=== PATIENT | male | born 1945 | race Caucasian/White ===

== ENCOUNTER 2021-12-03 08:55 | Day surgery (SDC) | payer MEDICARE ==
[2021-11-29 14:55] VITALS: BMI 26.9
[~2021-12-03 08:55] MED LIST: LACTATED RINGERS 1,000 ML IV SCH; LIDOCAINE 1% (10MG/ML) FOR IV START INTRADERMA PRN
[2021-12-03 09:33] VITALS: TEMP 97.7
[2021-12-03] MEDS ORDERED: PROPOFOL 10 MG/ML 20 ML VIAL IV ONE (10:01)
--- NOTE | 2021-12-03 10:18 | P.PCN ---
Date of Procedure: 12/03/21 Procedure(s) Performed: BRIEF HISTORY: Patient is a 76-year-old pleasant white male scheduled for an elective colonoscopy as a part of screening for colorectal neoplasia. PROCEDURE PERFORMED: Colonoscopy snare polypectomy. PREOPERATIVE DIAGNOSIS: Screening for colon cancer. IV sedation per Anesthesia. PROCEDURE: After informed consent was obtained, the patient, was brought into the endoscopy unit. IV sedation was administered by Anesthesia under continuous monitoring. Digital rectal examination was normal. Initially the Olympus CF-160 flexible video colonoscope was then inserted in the rectum, gradually advanced into the cecum without any difficulty. Careful examination was performed as the scope was gradually being withdrawn. Ileocecal valve and the appendiceal orifice were visualized and appeared normal. Prep was excellent. Mucosa of the cecum, appeared normal. In the ascending colon there was a 5 mm polyp that was removed by snare polypectomy. Rest of the ascending colon, transverse colon, descending colon, sigmoid colon, and rectum appeared normal. Retroflexion was performed in the rectum and no lesions were seen. The patient tolerated the procedure well. IMPRESSION: 5 mm ascending colon polyp status post polypectomy and scattered sigmoid diverticulosis RECOMMENDATIONS: Findings of this examination were discussed with the patient as well as a family. She was advised to follow with the biopsy results. ALLERGIES adenoma he can have a repeat colonoscopy in 5 years.
[2021-12-03 10:58] VITALS: BP 162/78; PULSE 73; RESP 16
== END 2021-12-03 11:28 | disposition home or self-care (01) ==
LOC: ORWHC2ENDO 08:55
PROVIDERS: ATTEND Internal Medicine Gastroenterology
DX: Z12.11 Encounter for screening for malignant neoplasm of colon (principal); D12.2 Benign neoplasm of ascending colon; K57.30 Diverticulosis of large intestine without perforation or abscess without bleeding; Z79.82 Long term (current) use of aspirin; Z79.899 Other long term (current) drug therapy; I10 Essential (primary) hypertension; E78.5 Hyperlipidemia, unspecified; Z97.2 Presence of dental prosthetic device (complete) (partial); Z88.8 Allergy status to other drugs, medicaments and biological substances
CPT/HCPCS: 88305; 45385; J2704

== ENCOUNTER → 2023-01-09 | Outpatient (CLI) | payer MEDICARE ==
--- NOTE | 2023-01-10 07:54 | CT ---
EXAMINATION TYPE: CT brain wo con CT DLP: 1144.7 mGycm, Automated exposure control for dose reduction was used. DATE OF EXAM: 01/09/2023 4:30 PM COMPARISON: None. CLINICAL INDICATION:Male, 77 years old with history of R53.1 Weakness, left arm tingling x 1week TECHNIQUE: Brain: Multiple axial CT images of the brain were obtained without IV contrast. Coronal and sagittal reformats reviewed. FINDINGS: Brain: Extra-axial spaces: No abnormal extra-axial fluid collections. Ventricular system: Dilatation in proportion to cerebral atrophy. Cerebral parenchyma: Cerebral atrophy. No acute intraparenchymal hemorrhage or mass effect. The franco -white junction is well differentiated. Scattered hypoattenuating areas are seen within the white mat ter. Cerebellum: Unremarkable. Mass effect: No evidence of midline shift. Intracranial vasculature: Atherosclerotic calcifications of the intracranial vessels. Soft tissues: Normal. Calvarium/osseous structures: No depressed skull fracture. Paranasal sinuses and mastoid air cells: Minimal scattered paranasal sinus disease. Visualized orbits: Bilateral aphakia IMPRESSION: 1. No acute intracranial process. 2. Nonspecific white matter changes, likely secondary to chronic small vessel ischemic disease.
== END | disposition home or self-care (01) ==
LOC: RADCTMAIN 16:03
PROVIDERS: ATTEND Family Medicine
DX: R90.82 White matter disease, unspecified (principal); R20.0 Anesthesia of skin; M62.81 Muscle weakness (generalized)
CPT/HCPCS: 70450

== ENCOUNTER → 2024-01-20 | Outpatient (CLI) | payer MEDICARE ==
--- NOTE | 2024-02-11 08:10 | MR ---
Site ID synapse default Patient Jorge Hoang ID [id number] Age/Gender: 78Y, M Order # N/A Procedure MR cervical spine w/o con Date 01/20/2024 4:18:18 PM EXAMINATION TYPE: MR cervical spine wo con DATE OF EXAM: 02/04/2024 COMPARISON: None HISTORY: Hand numbness/tingling, weakness TECHNIQUE: Multiplanar, multisequence images of the cervical spine were acquired without contrast. Delay in inte rpretation due to institutional cyber attack. FINDINGS: Alignment: The cervical vertebral bodies have preserved heights. Grade 1 anterolisthesis of C4 on C5. Bones: Bone signal is within normal limits. Multilevel degenerative disc disease is noted. Cord: There is increased T2 cord signal identified at C3-C4. Remaining spinal cord demonstrates rafa l signal. Discs: Multilevel disc desiccation is present. C2-C3: Broad-based disc bulge resulting in mild effacement of the anterior thecal sac. Bilateral face t arthropathy with right mild neural foraminal stenosis. The left neural foramen is patent. C3-C4: Central disc protrusion with caudal extrusion of approximately 5 mm resulting in severe centra l canal stenosis. Bilateral facet arthropathy and uncovertebral joint hypertrophy resulting in mild l eft and jwtjpofv-jv-cawkxg right neural foramina stenosis. C4-C5: Grade 1 anterolisthesis. Central disc protrusion with mild to moderate effacement of the anter ior thecal sac. Bilateral facet arthropathy with mild right neural foraminal stenosis. Left neural fo ramen is patent. C5-C6: Broad-based disc bulge with mild effacement of the anterior thecal sac. Bilateral facet arthr opathy with mild right and moderate left neural foraminal stenosis. C6-C7: Broad-based disc bulge with mild effacement of the anterior thecal sac. Bilateral facet arthr opathy with uncovertebral joint hypertrophy results in moderate left and moderate to severe right frida ral foraminal stenosis. C7-T1: Eccentric left disc bulge with mild effacement of the anterior thecal sac. Bilateral facet art hropathy resulting in severe right and ssnl-oz-zqdreaxr left neural foraminal stenosis. Other: None. IMPRESSION: 1. Advanced multilevel degenerative disc disease and facet arthropathy. This is most pronounced at C 3-C4 with large disc herniation resulting in severe central canal stenosis and spinal cord myelopathy . Surgical consultation is recommended. 2. C4-C5 disc herniation with mild to moderate central canal stenosis. Multilevel disc bulges result ing in mild central canal stenosis. 3. Grade 1 anterolisthesis of C4 on C5. 4. Multilevel varying degrees of neural foraminal stenosis as described above.
== END | disposition home or self-care (01) ==
LOC: RADMRIMAIN 17:00
PROVIDERS: ATTEND Physical Medicine & Rehabilitation
DX: M48.02 Spinal stenosis, cervical region (principal); M79.642 Pain in left hand; M79.641 Pain in right hand; M47.812 Spondylosis without myelopathy or radiculopathy, cervical region; M50.021 Cervical disc disorder at C4-C5 level with myelopathy; M43.12 Spondylolisthesis, cervical region
CPT/HCPCS: 72141

== ENCOUNTER → 2024-02-16 | Outpatient (CLI) | payer MEDICARE ==
--- NOTE | 2024-02-16 14:26 | XR ---
EXAMINATION TYPE: XR chest 2V DATE OF EXAM: 02/16/2024 2:22 PM CLINICAL INDICATION: Male, 78 years old with history of Z01.818 PAT, Z22.322 MRSA --CHEST XR; [facility] COMPARISON: None TECHNIQUE: XR chest 2V Frontal view of the chest. FINDINGS: Lungs/Pleura: There is no evidence of pleural effusion, focal consolidation, or pneumothorax. Pulmonary vascularity: Unremarkable. Heart/mediastinum: Cardiomediastinal silhouette is unremarkable. Musculoskeletal: No acute osseous pathology. IMPRESSION: No acute cardiopulmonary disease/process.
[2024-02-16 14:39] LABS: INR 1.2 (<1.2); Partial Thromboplastin Time 29.4 sec (22.0-30.0); Prothrombin Time 12.6 sec (10.0-12.5)
[2024-02-16 18:57] LABS: Basophils # (A) 0.07 X 10*3/uL (0.00-0.10); Basophils % (A) 0.6 %; Eosinophils # (A) 0.53 X 10*3/uL (0.04-0.35); Eosinophils % (A) 4.3 %; HCT 51.1 % (39.6-50.0); HGB 16.3 g/dL (13.0-17.0); Lymphocytes # (A) 2.75 X 10*3/uL (0.90-5.00); Lymphocytes % (A) 22.3 %; MCH 28.4 pg (27.0-32.0); MCHC 31.9 g/dL (32.0-37.0); Monocytes # (A) 0.62 X 10*3/uL (0.20-1.00); NRBC Per 100 WBC 0 X 10*3/uL (0.00-0.01); Neutrophils # (A) 8.28 X 10*3/uL (1.80-7.70); Neutrophils % (A) 67.2 %; Platelet Count 348 X 10*3/uL (140-440); RBC 5.74 X 10*6/uL (4.40-5.60); RDW 14.1 % (11.5-14.5); WBC 12.32 X 10*3/uL (4.50-10.00)
[2024-02-16 20:42] LABS: Appearance,Urine Clear (Clear); Bilirubin,Urine Negative (Negative); Blood,Urine Negative (Negative); Color,Urine Yellow (Yellow); Ketones,Urine Trace (Negative); Nitrite,Urine Negative (Negative); Specific Gravity,Urine 1.022 (1.001-1.030)
[2024-02-16 20:46] LABS: BUN/Creat Ratio 17.33 Ratio (12.00-20.00); Blood Urea Nitrogen 20.8 mg/dL (9.0-27.0); Calcium 10.5 mg/dL (8.7-10.3); Carbon Dioxide 27.7 mmol/L (21.6-31.8); Chloride 103 mmol/L (96-109); Glucose 106 mg/dL (70-110); Potassium 4.9 mmol/L (3.5-5.5); Sodium 141 mmol/L (135-145)
== END | disposition home or self-care (01) ==
LOC: LABPAT 13:28
PROVIDERS: ATTEND Orthopaedic Surgery Orthopaedic Surgery of the Spine
DX: Z01.818 Encounter for other preprocedural examination (principal); Z22.322 Carrier or suspected carrier of Methicillin resistant Staphylococcus aureus; M48.02 Spinal stenosis, cervical region
CPT/HCPCS: 36415; 71046; 80048; 81003; 85025; 85610; 85730; 86850; 86900; 86901; 87070

== ENCOUNTER 2024-02-24 05:37 | Inpatient (IN) | payer MEDICARE ==
[2024-02-24] MEDS ORDERED: LIDOCAINE 1% (10MG/ML) FOR IV START INTRADERMA PRN (06:06)
[2024-02-24] MEDS: IV FLUID CONTINUATION 1,000 ML IV ONE ×2 (06:15)
[2024-02-24] MEDS: ONDANSETRON 4 MG/2 ML VIAL IVP ONE (06:46)
[2024-02-24] MEDS: LACTATED RINGERS 1,000 ML IV SCH (06:47)
[2024-02-24] MEDS ORDERED: MIDAZOLAM 2 MG/2 ML VIAL IV PRN (07:00)
[2024-02-24] MEDS ORDERED: fentaNYL (PF) 50 MCG/ML 2 ML AMP IVP PRN (07:00)
[2024-02-24] MEDS ORDERED: HYDROmorphone 0.5 MG/0.5 ML SYRINGE IVP PRN (07:00)
[2024-02-24] MEDS ORDERED: PHENYLEPHRINE-0.9% NACL SYG 1,000 MCG/10 ML SYRINGE ONE (07:25)
[2024-02-24] MEDS ORDERED: KETAMINE HCL IN 0.9 % NACL 50 MG/5 ML SYRINGE ONE (07:25)
[2024-02-24] MEDS ORDERED: MIDAZOLAM 2 MG/2 ML VIAL ONE (07:25)
[2024-02-24] MEDS ORDERED: GLYCOPYRROLATE 0.2 MG/ML 2 ML VIAL ONE (07:25)
[2024-02-24] MEDS ORDERED: NEOSTIGMINE 1 MG/ML 10 ML VIAL ONE (07:25)
[2024-02-24] MEDS ORDERED: PROPOFOL 10 MG/ML 20 ML VIAL IV ONE (07:25)
[2024-02-24] MEDS ORDERED: ROCURONIUM 10 MG/ML (5 ML VIAL) IV ONE (07:25)
[2024-02-24] MEDS ORDERED: fentaNYL (PF) 50 MCG/ML 2 ML AMP ONE (07:25)
[2024-02-24] MEDS ORDERED: LIDOCAINE 1% INJ 10MG/ML (20 ML MDV) ONE (07:25)
[2024-02-24] MEDS ORDERED: ePHEDrine 50 MG/ML 1 ML VIAL ONE (07:25)
[2024-02-24] MEDS ORDERED: SUCCINYLCHOLINE CHLORIDE 200 MG/10 ML VIAL IV ONE (07:25)
[2024-02-24] MEDS: LIDOCAINE 1%-EPI 1:100,000 20 ML VIAL SQ ONE (07:30)
[2024-02-24] MEDS: THROMBIN (BOVINE) 5,000 UNIT VIAL TOPICAL ONE (07:30)
[2024-02-24] MEDS: ceFAZolin 1,000 MG in SODIUM CHLORIDE 0.9% IRRIGATIO 1,000 ML IRRIGATION PRN (08:28)
--- NOTE | 2024-02-24 08:39 | XR ---
EXAMINATION TYPE: XR cervical spine 1V DATE OF EXAM: 02/24/2024 COMPARISON: NONE HISTORY: NEEDLE PLACEMENT TECHNIQUE: Crosstable lateral view of the cervical spine FINDINGS: Localization of hiatus is at the anterior C4-5 level. IMPRESSION: As above
--- NOTE | 2024-02-24 10:29 | XR ---
EXAMINATION TYPE: XR cervical spine 1V DATE OF EXAM: 02/24/2024 COMPARISON: NONE HISTORY: Hardware placement TECHNIQUE: Cross table lateral intraoperative portable view of the cervical spine FINDINGS: Anterior cervical discectomy and fusion extending from C3 through C7. Anterior fixation roly te and intervertebral body spacers are in place. Postoperative alignment appears to be within normal limits. IMPRESSION: As above
--- NOTE | 2024-02-24 10:41 | P.OP ---
Date of Procedure: 02/24/24 Preoperative Diagnosis: Cervical myelopathy, cervical myelomalacia, severe cervical stenosis C3-4 C4-5 C5-6 C6-7, herniated nucleus pulposus C3-4 C4-5 C5-6 C6-7, upper extremity weakness, upper extremity radiculopathy, myelopathic hand Postoperative Diagnosis: Same Anesthesia: GETA Pathology: none sent Condition: stable Disposition: PACU Description of Procedure: BRIEF OPERATIVE NOTE Preoperative Diagnosis:Cervical myelopathy, cervical myelomalacia, severe cervical stenosis C3-4 C4-5 C5-6 C6-7, herniated nucleus pulposus C3-4 C4-5 C5-6 C6-7, upper extremity weakness, upper extremity radiculopathy, myelopathic hand Postoperative Diagnosis:Cervical myelopathy, cervical myelomalacia, severe cervical stenosis C3-4 C4-5 C5-6 C6-7, herniated nucleus pulposus C3-4 C4-5 C5-6 C6-7, upper extremity weakness, upper extremity radiculopathy, myelopathic hand Procedure: Anterior cervical decompression with discectomy and fusion C3-4 C4-5 C5-6 C6-7 Placement of interbody graft C3-4 C4-5 C5-6 C6-7 Application of anterior cervical plate C3-7 Surgeon: Dr. Rogel Security Manager: Miko SILVESTRE who is present throughout the entire the case persistence during positioning, dissection, exposure, visualization, and all crucial elements of the case as well as closure. Anesthesia: General anesthesia per Dr. Yi Estimated blood loss: Approximately 100 cc Complications: None apparent Components implanted: K2M [place] anterior cervical plate system with screws and Vikos interbody allograft bone graft x 4 and 1 cc of DBX bone putty Disposition: To recovery room in good stable condition. OPERATIVE INDICATIONS The patient has had long-standing issues in their neck and upper extremities. He has been having significant worsening over the past several months. He has been treated in the past for carpal tunnel syndrome but was continuing to have upper extremity symptoms. He presented to us in was found to have evidence of significant cervical myelopathy and myelopathic hand. He was found to have severe stenosis at his cervical spine at multiple levels with disc herniation which correlated well with his neck and upper extremity symptoms. He was having myelopathy and difficulty with his ambulation in his bilateral upper extremities worse on the right than the left. The patient understood that his issues were quite severe and he would likely have permanent nerve damage due to the significant symptoms and issues at his cervical spine. The patient has been through conservative treatment. We discussed various treatment options including surgery, and the patient wishes to proceed with surgery We discussed the risk, patient's alternatives and benefits of surgery including but not limited to, risk of bleeding risk of infection, risk of need for further surgery, risk of decreased, loss of motion, muscle function, malunion nonunion, hardware failure, nerve damage, paralysis, heart attack, and . OPERATIVE SUMMARY After discussing all the risks, patient alternatives and benefits at length, the patient elected to proceed with surgical intervention, signed informed consent, and presented for their procedure. The patient was seen and examined in the preoperative holding area and the surgical site was marked. The patient was given antibiotics and brought to the operating room. The patient was positioned on the operating room table in a supine position being careful to pad any bony prominences and pressure points. The patient was sedated and intubated by anesthesia in standard fashion. Once the airway and C- spine were stabilized the patient's arms were padded and tucked at her side, with her shoulders gently taped. The head was placed in a donut pad with the neck in good neutral alignment and position. We were careful to maintain the patient's cervical spine and good neutral alignment and position throughout. The patient was prepped and draped in a normal standard fashion. An appropriate timeout and keystone protocol performed. We were able to proceed with the surgery. The local wound area was infiltrated with local anesthetic. An incision was made transversely approximately 3-1/2 cm over the appropriate levels from C3-7. Dissection was taken down subcutaneously to the level of the platysma which was split in line with its fibers. Dissection was taken with a c arotid approach, with the trachea and esophagus medial and the carotid sheath laterally. We dissected down to the anterior surface of the vertebral bodies of C3-7. Intraoperative x-ray was taken which showed a marker at the appropriate level of C4-5. With the appropriate level positively confirmed, we were able to proceed with discectomy at the appropriate levels. All of the operative levels were exposed appropriately. I had to take down multiple anterior cervical osteophytes at each of the levels particulates C5-6 C6-7 the patient had all their twitches back, and there was no evidence of recurrent laryngeal issue. The wound was copiously irrigated and suctioned dry as had been done periodically throughout the case. At the appropriate level/levels, starting at C3-4 and then moving to C4-5 and then C5-6 and then C6-7 similarly I established an annulotomy with an 11 blade scalpel. A discectomy was performed with a combination of pituitary rongeurs, curettes, a high-speed bur, and Kerrison rongeurs. The posterior longitudinal ligament was taken down as were any posterior osteophytes. There was massive disc nation at C3-4 which was taken down. There was severe stenosis at each of the level centrally and the bilateral neural foramen which was all removed centrally and at the neural foramen to get excellent decompression. This gave good central and bilateral foraminal decompression. There is no evidence of any dural tear or leak. The endplates were prepared with a high-speed bur. With the endplates in good parallel position, I was able to size for the appropriate size interbody graft. The wound was irrigated and suctioned dry the graft was prepared and malleted into position. It had good alignment and position with the anterior surface flush with the anterior surface of the vertebral bodies. This was done similarly the appropriate levels from C3-4 and C4-5 and then C5-6 and C6-7. With the grafts intact, I was able to measure and contour and appropriate sized plate. The plate was positioned at the midline over the appropriate levels from C3-C7. Screw holes were established with a hand drill and drill guide. Screws were placed in good alignment and position with excellent bony purchase. They were seated under the locking device. The construct was checked and found to be stable. Intraoperative x-ray was taken which showed good alignment and position of the implants at the appropriate levels. There was no evidence of any dural tear or leak. Good hemostasis was maintained. The wound was copiously irrigated and suctioned dry as had been done periodically throughout the case. The platysma was closed with absorbable suture. The subcutaneous tissue was closed. The subcuticular tissue was closed with absorbable suture. The wound was cleaned and dried and dressed appropriately. A soft cervical collar was placed appropriately. The patient was woken up by anesthesia, extubated, transferred back gently to their hospital bed and brought to the recovery room in good stable condition. The patient will be admitted to the hospital for appropriate postoperative care, medical management and monitoring. We will continue to follow them closely about the postoperative course.
[2024-02-24] MEDS ORDERED: ACETAMINOPHEN TAB 325 MG TAB PO PRN (10:42)
[2024-02-24] MEDS ORDERED: HYDROmorphone 1 MG/ML 1 ML SYRINGE IVP PRN (10:42)
[2024-02-24] MEDS ORDERED: ONDANSETRON 4 MG/2 ML VIAL IVP PRN (10:42)
[2024-02-24] MEDS: DEXAMETHASONE SOD PHOSPHATE 4 MG/ML 1 ML VIAL IV ONE (13:30)
[2024-02-24] MEDS: SODIUM CHLORIDE 0.9% 1,000 ML IV SCH (17:02)
[2024-02-24] MEDS: BENZOCAINE/MENTHOL LOZENG 1 EACH LOZENGE MUCOUS MEM PRN (23:45)
[2024-02-25] MEDS: HYDROmorphone 0.5 MG/0.5 ML SYRINGE IVP PRN (02:16)
--- NOTE | 2024-02-25 10:52 | P.DS ---
Providers Date of admission: 02/24/24 05:37 Expected date of discharge: 02/25/24 Attending physician: Toni Rogel Primary care physician: Chen Williamson - Discharge Diagnosis(es) (1) Cervical myelopathy Current Visit: Yes Status: Acute (2) Myelomalacia of cervical cord Current Visit: Yes Status: Acute (3) Upper extremity weakness Current Visit: Yes Status: Acute (4) Cervical spinal stenosis Current Visit: Yes Status: Acute (5) S/P cervical spinal fusion Current Visit: Yes Status: Acute (6) Hypertension Current Visit: Yes Status: Acute (7) Hyperlipidemia Current Visit: Yes Status: Acute (8) Cervical herniated disc Current Visit: Yes Status: Acute Hospital Course: Patient is a very pleasant 78-year-old male who is status post C3-4, C4-5, C5-6, and C6-7 anterior cervical decompression and fusion performed yesterday. He has continued to keep her hard cervical collar intact. He has not had significant change in his symptoms postoperatively. He does feel his symptoms are adequately controlled. His pain is controlled. He is known to have severe cervical stenosis with cervical myelopathy and cervical myelomalacia. He continues to have difficulty with his hands bilaterally. He is also unstable with his gait. He feels his pain is well-controlled and he would like to be discharged home today. He did have difficulty with urination independently postoperatively. Wang catheter was reinserted. We did discuss we'll plan to discontinued his Wang catheter this afternoon and if he is able to void independently he will be cleared for discharge home. If he is unable to void, Wang catheter will be reinserted in consultation will be placed with urology. He has some soreness at his throat but has been able to eat independently. Patient was cleared preoperatively by her primary care provider. Patient must keep hard cervical collar intact at all times except while bathing. Patient should avoid overhead activities. No lifting greater than 10 pounds. Avoid excessive cervical flexion, extension, and rotation. Take medications as prescribed. Prescriptions for hydrocodone 5 mg/325 mg take 1 tab every 6 hours as needed for acute pain, dispensed #28 and baclofen 10 mg, 1 tab, 3 times a day, as needed for muscle spasm, dispensed #60, and Senokot-S, , take 1 tab, twice a day, as needed for constipation, dispensed #60.. Prescriptions were sent to the [facility] pharmacy per request of the patient. Patient will follow up with Miko Hoover PA-C or Dr.Neil Rogel at [facility] in approximately 2-3 weeks for further evaluation. Patient's other medical diagnoses include hypertension and hyperlipidemia. He may resume her other previously prescribed home medications while avoiding anti-inflammatory medications over the next 6 weeks post operatively. Patient is significant study on his feet and must have a walker to aid in ambulation. He is known have severe cervical spinal stenosis with cervical myelopathy and cervical myelomalacia. A tubular walker is required for his regular activities of daily living including mobility and ambulation. Prescription is written, signed, and provided the case management to provide a walker for the patient prior to discharge home. Physical exam on day of discharge: Patient is awake, alert, oriented 3 Vital signs appears stable Good inspiration and expiration Hard cervical collar intact Optifoam dressing is clean, dry, and intact over the anterior cervical spine Patient is able to active range of motion of her bilateral upper extremities most significant difficulty with his hands Evidence of myelopathic change in his hands bilaterally Difficulty with hand lens polisher bilaterally. No pain with palpation around the surgical site Wang catheter intact Procedures: Status post C3-4, C4-5, C5-6, and C6-7 anterior cervical decompression and fusion Patient Condition at Discharge: Stable Plan - Discharge Summary Discharge Rx Participant: No New Discharge Prescriptions: New Sennosides-Docusate Sodium [Senokot-S] 1 tab PO BID PRN #60 tablet PRN Reason: Constipation Baclofen 10 mg PO TID PRN #60 tab PRN Reason: Spasms HYDROcodone/APAP 5-325MG [[place] 5] 1 each PO Q6HR PRN #28 tab PRN Reason: Pain No Action Fenofibrate Nanocrystallized [Fenofibrate] 145 mg PO DAILY Aspirin 325 mg PO DAILY Metoprolol Tartrate [Lopressor] 37.5 mg PO DAILY NIFEdipine [NIFEdipine ER (Osmotic)] 60 mg PO DAILY Simvastatin 40 mg PO DAILY Discharge Medication List Aspirin 325 mg PO DAILY 11/29/21 [History] Fenofibrate Nanocrystallized [Fenofibrate] 145 mg PO DAILY 11/29/21 [History] NIFEdipine [NIFEdipine ER (Osmotic)] 60 mg PO DAILY 11/29/21 [History] Simvastatin 40 mg PO DAILY 11/29/21 [History] Metoprolol Tartrate [Lopressor] 37.5 mg PO DAILY 02/18/24 [History] Baclofen 10 mg PO TID PRN #60 tab 02/25/24 [Rx] HYDROcodone/APAP 5-325MG [[place] 5] 1 each PO Q6HR PRN #28 tab 02/25/24 [Rx] Sennosides-Docusate Sodium [Senokot-S] 1 tab PO BID PRN #60 tablet 02/25/24 [Rx] Follow up Appointment(s)/Referral(s): [facility],[place] [NON-STAFF] - As Needed Toni Rogel DO [Doctor of Osteopathic Medicine] - 03/11/24 1:05 pm [facility] [NON-STAFF] - As Needed (walker) Activity/Diet/Wound Care/Special Instructions: Patient is to wear hard cervical collar at all times except bathing keep site clean. May shower with waterproof Tegaderm intact. Do not soak in a tub. After 72 hours postoperatively, patient May remove dressing and then may shower with area uncovered. Leave glue intact and allow it to fray off on its own. May ambulate as tolerated. Avoid heavy or rigorous activity. No repetitive bending twisting or lifting. No overhead work. Patient is encouraged to use a walker to aid in ambulation. Discharge Disposition: HOME SELF-CARE
[2024-02-25] MEDS: HYDROcodone/APAP 5-325MG 1 EACH TAB PO PRN (16:28)
--- NOTE | 2024-02-26 08:51 | P.PN ---
Progress Note - Text Progress Note Date: 02/26/24 Orthopedic Spine: History of present illness: Patient is a pleasant 78-year-old male who is seen at the bedside following anterior cervical decompression and fusion performed Thursday. Plan for discharge home yesterday but was unable to void independently. Wang catheter was discontinued yesterday and he was finally able to void independently at 8:30 PM last night. He has been voiding since that time without difficulty. He is status post C3-4, C4-5, C5-6, and C6-7 anterior cervical decompression and fusion. He has continued to keep her hard cervical collar intact. He has not had significant change in his symptoms postoperatively. He does feel his symptoms are adequately controlled. His pain is controlled. He is known to have severe cervical stenosis with cervical myelopathy and cervical myelomalacia. He continues to have difficulty with his hands bilaterally. He is also unstable with his gait. He does have some generalized swelling of the anterior cervical spine. He is able to eat, drink, and breathe without significant difficulty. He states his throat is sore while swallowing but he has been able to eat food. He feels his pain is well-controlled and he would like to be discharged home today. Currently does not complain of nausea, vomiting, fever, or chills. Patient states pain has been adequately controlled. Medications for discharge were sent to the [facility] pharmacy located within [facility] yesterday. He was able to receive these medications. He has been working with physical therapy increase his mobility and ambulation. He has been utilizing a walker. A prescription for a walker was signed and provided to case management yesterday. He has received this walker for discharge home today. Physical exam on day of discharge: Postoperative day #2 Patient is awake, alert, oriented 3 Vital signs appears stable Good inspiration and expiration Hard cervical collar intact Optifoam dressing is clean, dry, and intact over the anterior cervical spine Some generalized swelling around the anterior cervical surgical incision site No erythema, bruising, or obvious sign of infection at the anterior cervical spine Patient is able to active range of motion of her bilateral upper extremities most significant difficulty with his hands Evidence of myelopathic change in his hands bilaterally Difficulty with rn maternity bilaterally. No pain with palpation around the surgical site Assessment: Status post C3-4, C4-5, C5-6, and C6-7 anterior cervical decompression and fusion Cervicalgia Cervical myelopathy Cervical myelomalacia Upper extremity weakness Severe cervical stenosis Unsteady gait Hypertension Hyperlipidemia Plan: 1. Ambulate as tolerated; work with Physical Therapy to increase mobilization 2. Patient is encouraged to utilize a walker to aid in ambulation 3. Patient may shower with Optifoam dressing; patient may remove Optifoam in 3 days and shower without a dressing at that time 4. Patient should avoid overhead activity; no lifting greater than 10 pounds; avoid excessive cervical flexion, extension, and rotation 5. Patient must keep hard cervical collar intact at all times except while bathing 6. Patient can follow-up with Miko Hoover PA-C or Dr. Ruperto Rogel at [facility] next 03/04/2024 following discharge
[2024-02-26 10:00] VITALS: BP 164/81; PULSE 85; RESP 18; TEMP 98.1
== END 2024-02-26 11:20 | disposition home or self-care (01) | DRG 454 ==
LOC: 2ORMAIN 05:37 → 4SSUR 12:25
PROVIDERS: ADMIT Orthopaedic Surgery Orthopaedic Surgery of the Spine; ATTEND Orthopaedic Surgery Orthopaedic Surgery of the Spine
PROC: 0RG2071 Fusion of 2 or more Cervical Vertebral Joints with Autologous Tissue Substitute, Posterior Approach, Posterior Column, Open Approach (ICD-10-PCS; 2024-02-24)
PROC: 0RB30ZZ Excision of Cervical Vertebral Disc, Open Approach (ICD-10-PCS; 2024-02-24)
PROC: 01N10ZZ Release Cervical Nerve, Open Approach (ICD-10-PCS; 2024-02-24)
PROC: 4A11X4G Monitoring of Peripheral Nervous Electrical Activity, Intraoperative, External Approach (ICD-10-PCS; 2024-02-24)
PROC: 0RG20A0 Fusion of 2 or more Cervical Vertebral Joints with Interbody Fusion Device, Anterior Approach, Anterior Column, Open Approach (ICD-10-PCS; principal; 2024-02-24 07:30)
DX: M50.123 Cervical disc disorder at C6-C7 level with radiculopathy (principal); G95.89 Other specified diseases of spinal cord; M50.023 Cervical disc disorder at C6-C7 level with myelopathy; M48.02 Spinal stenosis, cervical region; E78.5 Hyperlipidemia, unspecified; I10 Essential (primary) hypertension